=== PATIENT | female | born 1960 | race Caucasian/White ===

== ENCOUNTER 2024-01-08 17:01 | Inpatient (IN) ==
[2024-01-08 17:59] LABS: ABS Basophils 0.1 10^3/uL (0.0-0.1); ABS Eosinophils 0.2 10^3/uL (0.0-0.5); ABS Lymphocytes 1.4 10^3/uL (1.0-4.8); ABS Monocytes 0.9 10^3/uL (0.0-0.9); ABS Neutrophils 9.6 10^3/uL (1.5-7.6); ABS Nucleated RBC 0.01 10^3/ul; Eosinophil % 1.4 %; Hematocrit 39.3 % (35-45); Hemoglobin 13.2 g/dL (11.5-14.3); Lymphocyte % 11.4 %; Mean Corpuscular Hgb Conc 33.6 g/dL (31-36); Mean Corpuscular Volume 86.1 fL (80-97); Mean Platelet Volume 8.9 fL (7.5-11.2); Nucleated Red Blood Cells % 0.1 %/100WBC (0.0-0.8); Platelet Count 276 10^3/uL (150-450); Red Blood Count 4.56 10^6/uL (3.63-4.92); Red Cell Distribution Width 13.7 % (12-17); White Blood Count 12.1 10^3/uL (3.8-11.8)
[2024-01-08 18:25] LABS: ALT 15 U/L (7-52); Albumin 4.5 g/dL (3.2-5.2); Albumin/Globulin Ratio 1.9 (1-3); Alkaline Phosphatase 150 U/L (35-149); Anion Gap 11 mmol/L (2-16); Blood Urea Nitrogen 28 mg/dL (6-24); C Reactive Protein 3.09 mg/L (<8.01); CO2 Carbon Dioxide 27 mmol/L (22-32); Calcium 9.5 mg/dL (8.6-10.3); Chloride 101 mmol/L (101-111); Creatinine, Serum 1.14 mg/dL (0.51-0.95); Globulin 2.4 g/dL (2-4); Glucose 78 mg/dL (70-100); Sodium 139 mmol/L (135-145); Total Bilirubin 0.7 mg/dL (0.2-1.0); Total Protein 6.9 g/dL (6.4-8.9); eGFR CKD-EPI 53.4 (>60)
[2024-01-08 20:09] LABS: Erythrocyte Sed Rate 4 mm/Hr (0-29)
[2024-01-08] MEDS: NS 0.9% 1000 ml BAG 1,000 ML IV ONE (20:31)
[2024-01-08] MEDS: Piperacillin/Tazobac 3.375 BAG 3.375 GM/100 ML BAG IV ONE (20:58)
[2024-01-08] MEDS ORDERED: fentaNYL 100 mcg/2 ml 50 MCG/ML VIAL ONE ×3 (21:11→22:50)
[2024-01-08] MEDS ORDERED: Lidocaine 2% PF 5 ML VIAL ONE (21:11)
[2024-01-08] MEDS ORDERED: Midazolam 2 mg/2 ml VIAL 1 mg/ml 2 ml VIAL (2 mg) ONE (21:11)
[2024-01-08] MEDS ORDERED: Ondansetron 4 mg VIAL 2 MG/ML 2 ml VIAL ONE (21:11)
[2024-01-08] MEDS ORDERED: Dexamethasone IV 4 MG/ML VIAL 1 ml VIAL ONE (21:11)
[2024-01-08] MEDS ORDERED: Propofol 10 MG/ML 20 ML BTL ONE ×4 (21:11→22:49)
[2024-01-08 21:22] LABS: Potassium Redraw 3.8 mmol/L (3.5-5.0)
[2024-01-08] MEDS ORDERED: Naloxone 0.4 mg VIAL 0.4 mg/ml 1 ml VIAL IV PRN (21:31)
[2024-01-08] MEDS ORDERED: fentaNYL 100 mcg/2 ml 50 MCG/ML VIAL IV PRN (21:31)
[2024-01-08] MEDS ORDERED: Ondansetron 4 mg VIAL 2 MG/ML 2 ml VIAL IV PRN ×2 (21:31→21:57)
[2024-01-08] MEDS ORDERED: Metoclopramide 5 MG/ML VIAL (10 mg) IV PRN (21:31)
[2024-01-08] MEDS ORDERED: Ondansetron ODT 4 mg TAB 4 MG TAB PO PRN (21:57)
[2024-01-08] MEDS ORDERED: Magnesium Hydroxide LIQ 30 ML UDC PO PRN (21:57)
[2024-01-08] MEDS ORDERED: Lactulose 30 ml UDC PO PRN (21:57)
[2024-01-08] MEDS ORDERED: NS 0.45% 1000 ml BAG 1,000 ML IV SCH (22:00)
[2024-01-08] MEDS ORDERED: Bupivacaine 0.25% SDV 30 ML ONE (22:15)
[2024-01-08] MEDS ORDERED: Phenylephrine 40 mcg/mL 10mL (400mcg) SYRINGE ONE (22:43)
[2024-01-08] MEDS ORDERED: Rocuronium 50 mg VIAL 10 mg/ml 5 ml VIAL (50 mg) ONE (23:49)
[2024-01-08] MEDS ORDERED: Albuterol 2.5mg/3 ml (0.083%) NEB.SOLN INH ONE (23:55)
[2024-01-09] MEDS ORDERED: Acetaminophen IV 1 GM/100ML 1,000 MG/100 ML BAG IV ONE (00:06)
[2024-01-09] MEDS: Morphine 2 MG/ML SYRINGE IV PRN (02:49)
[2024-01-09] MEDS: Piperacillin/Tazobac 3.375 BAG 3.375 GM/100 ML BAG IV SCH ×2 (03:12→04:09)
[2024-01-09] MEDS: Lactated Ringers 1000 ml BAG 1,000 ML IV SCH ×2 (03:56→07:15)
[2024-01-09] MEDS: NS 0.9% 1000 ml BAG 1,000 ML IV SCH (04:03)
[2024-01-09] MEDS: Acetaminophen IV 1 GM/100ML 1,000 MG/100 ML BAG IV ONE ×2 (04:03)
[2024-01-09] MEDS: Morphine 2 MG/ML SYRINGE ONE (04:09)
[2024-01-09 04:48] LABS: ABS Lymphocytes 0.3 10^3/uL (1.0-4.8); ABS Monocytes 0.3 10^3/uL (0.0-0.9); ABS Neutrophils 12.6 10^3/uL (1.5-7.6); Eosinophil % 0.1 %; Hematocrit 34.1 % (35-45); Hemoglobin 11.5 g/dL (11.5-14.3); Lymphocyte % 2.5 %; Mean Corpuscular Hgb Conc 33.6 g/dL (31-36); Mean Corpuscular Volume 86.3 fL (80-97); Mean Platelet Volume 8.6 fL (7.5-11.2); Platelet Count 247 10^3/uL (150-450); Red Blood Count 3.96 10^6/uL (3.63-4.92); Red Cell Distribution Width 13.7 % (12-17); White Blood Count 13.3 10^3/uL (3.8-11.8)
[2024-01-09] MEDS: Benzocaine/Menthol LOZ MT PRN (05:02)
[2024-01-09] MEDS: Albuterol 2.5mg/3 ml (0.083%) NEB.SOLN INH ONE (06:05)
[2024-01-09] MEDS: Buffered Lidocaine 1% SYRIN 1 ml INTRADERM ONE (07:15)
[2024-01-09] MEDS: Scopolamine 1 mg/72hr PATCH TRANSDERM ONE (07:15)
[2024-01-09 07:34] LABS: Calcium 8.4 mg/dL (8.6-10.3); Creatinine, Serum 0.89 mg/dL (0.51-0.95); Potassium 3.6 mmol/L (3.5-5.0); eGFR CKD-EPI 71.9 (>60)
[2024-01-09] MEDS: Rizatriptan ODT 10 mg TAB (NF) PO ONE (08:45)
[2024-01-09] MEDS: Vitamin THERAPEUTIC TAB PO SCH (09:07)
[2024-01-09] MEDS: Magnesium Hydroxide LIQ 30 ML UDC PO SCH (09:13)
[2024-01-09] MEDS: buPROPion SR 100 mg TAB.SR PO SCH (11:17)
[2024-01-09] MEDS ORDERED: Senna TAB 8.6 mg TAB PO PRN (14:42)
[2024-01-09] MEDS ORDERED: Polyethylene Glycol 3350 17 GM PACKET PO PRN (14:42)
[2024-01-09] MEDS: ceFAZolin 2 GM in NS PREMIX 2 GM/100 ML BAG IVPB SCH (19:28)
[2024-01-10 05:28] LABS: ABS Basophils 0.1 10^3/uL (0.0-0.1); ABS Lymphocytes 1.2 10^3/uL (1.0-4.8); ABS Monocytes 0.9 10^3/uL (0.0-0.9); ABS Neutrophils 8.4 10^3/uL (1.5-7.6); Eosinophil % 0.4 %; Hematocrit 32.6 % (35-45); Hemoglobin 11.2 g/dL (11.5-14.3); Lymphocyte % 11.5 %; Mean Corpuscular Hemoglobin 29.6 pg (27-33); Mean Corpuscular Hgb Conc 34.4 g/dL (31-36); Mean Platelet Volume 8.6 fL (7.5-11.2); Platelet Count 253 10^3/uL (150-450); Red Blood Count 3.79 10^6/uL (3.63-4.92); Red Cell Distribution Width 13.9 % (12-17); White Blood Count 10.7 10^3/uL (3.8-11.8)
[2024-01-10 05:56] LABS: C Reactive Protein 31.94 mg/L (<8.01); Calcium 8.6 mg/dL (8.6-10.3); Creatinine, Serum 0.84 mg/dL (0.51-0.95); Potassium 3.5 mmol/L (3.5-5.0); eGFR CKD-EPI 77.1 (>60)
[2024-01-10 13:49] VITALS: BP 126/88
== END 2024-01-10 15:20 | disposition home or self-care (01) | DRG 987 ==
LOC: ED 17:01 → AA 21:11 → EDHOLD 21:31 → AA 21:36 → ICU 01-09 02:22 → SSU 01-09 12:59
PROVIDERS: ADMIT Orthopaedic Surgery Hand Surgery; ATTEND Orthopaedic Surgery Hand Surgery